=== PATIENT | female | born 1970 | race Caucasian/White ===

== ENCOUNTER 2017-10-30 11:03 | Emergency (ER) | payer BC ==
[2017-10-30 13:12] VITALS: BP 108/73
--- NOTE | 2017-10-30 13:38 | ED ---
Throat Pain/Nasal Congestion - HPI Summary HPI Summary: 47 yr old female with the complaint of sore throat for three days, hurts to swallow but no trouble breathing, swallowing saliva, or change in voice. the patient has not had fever. 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 She has no other complaints. - History of Current Complaint Chief Complaint: UCRespiratory Time Seen by Provider: 10/30/17 13:21 - Allergies/Home Medications Allergies/Adverse Reactions: Allergies Allergy/AdvReac Type Severity Reaction Status Date / Time No Known Allergies Allergy Verified 10/30/17 13:07 Home Medications: Home Medications Levocetirizine Dihydrochloride [Xyzal Allergy 24Hr] 1 tab DAILY 10/30/17 [ History Confirmed 10/30/17] PMH/Surg Hx/FS Hx/Imm Hx Endocrine/Hematology History: Denies: Hx Anticoagulant Therapy, Hx Diabetes, Hx Thyroid Disease Cardiovascular History: Denies: Hx Congestive Heart Failure, Hx Deep Vein Thrombosis, Hx Hypertension , Hx Myocardial Infarction, Hx Pacemaker/ICD Respiratory History: Denies: Hx Asthma, Hx Chronic Obstructive Pulmonary Disease (COPD), Hx Lung Cancer, Hx Pneumonia, Hx Pulmonary Embolism GI History: Denies: Hx Gall Bladder Disease, Hx Gastrointestinal Bleed, Hx Ulcer, Hx Urosepsis History: Denies: Hx Kidney Stones, Hx Renal Disease Sensory History: Denies: Hx Hearing Aid Neurological History: Denies: Hx Dementia, Hx Migraine, Hx Seizures, Hx Transient Ischemic Attacks (TIA) Psychiatric History: Denies: Hx Anxiety, Hx Depression, Hx Panic Disorder, Hx Schizophrenia, Hx Bipolar Disorder - Surgical History Hx Anesthesia Reactions: No Infectious Disease History: No Infectious Disease History: Denies: Hx Hepatitis, Hx Human Immunodeficiency Virus (HIV), Traveled Outside the [place] in Last 30 Days - Family History Known Family History: Positive: Hypertension, Diabetes Negative: Cardiac Disease - Social History Occupation: Employed Full-time Alcohol Use: None Substance Use Type: Reports: None Smoking Status (MU): Never Smoked Tobacco Review of Systems Negative: Fever, Chills Positive: Sore Throat, Nasal Discharge Negative: Cough All Other Systems Reviewed And Are Negative: Yes Physical Exam Triage Information Reviewed: Yes Vital Signs On Initial Exam: Initial Vitals Temp Pulse Resp BP Pulse Ox 98.2 F 82 16 108/73 100 10/30/17 13:09 10/30/17 13:09 10/30/17 13:09 10/30/17 13:09 10/30/17 13:09 Vital Signs Reviewed: Yes Appearance: Positive: Well-Appearing, No Pain Distress Skin: Positive: Skin Color Reflects Adequate Perfusion Eyes: Positive: EOMI ENT: Positive: Pharyngeal erythema, TMs normal. Negative: Nasal congestion Respiratory/Lung Sounds: Positive: Clear to Auscultation, Breath Sounds Present Cardiovascular: Positive: RRR. Negative: Murmur Abdomen Description: Positive: Nontender Musculoskeletal: Positive: Strength/ROM Intact Neurological: Positive: Sensory/Motor Intact, Alert, Oriented to Person Place, Time, CN Intact II-III Psychiatric: Positive: Normal - [place] Coma Scale Best Eye Response: 4 - Spontaneous Best Motor Response: 6 - Obeys Commands Best Verbal Response: 5 - Oriented Diagnostics - Vital Signs Vital Signs Temp Pulse Resp BP Pulse Ox 10/30/17 13:09 98.2 F 82 16 108/73 100 - Laboratory Lab Results: Lab Results 10/30/17 Range/Units 13:16 Group A Strep Rapid Negative (Negative) Lab Statement: Any lab studies that have been ordered have been reviewed, and results considered in the medical decision making process. EENT Course/Dx - Course Course Of Treatment: 47 yr old female with neg rapid strep but with uri symptoms ; dc home. symptomatic treatment. - Diagnoses Provider Diagnoses: Upper respiratory infection Discharge - Discharge Plan Condition: Good Disposition: HOME Patient Education Materials: Pharyngitis (ED) Referrals: Benjamin Valdez NP [Primary Care Provider] - 2 Days
== END 2017-10-30 13:42 | disposition home or self-care (01) ==
LOC: UCCORT 11:03
DX: J06.9 Acute upper respiratory infection, unspecified (principal)
CPT/HCPCS: 87651; 99211; G0463